=== PATIENT | female | born 1995 | race Two or more races ===

== ENCOUNTER 2024-07-22 00:55 | Emergency (ER) | payer MEDICAID, OTHER ==
[~2024-07-22] VITALS: Ht 154.9 cm; Wt 79.4 kg
[2024-07-22 01:11] VITALS: BP 166/85; PULSE 75; RESP 16; O2SAT 99
[2024-07-22] MEDS ORDERED: BENZOCAINE (DENTAL) 20 % SPRAY 60ML MT ONE (03:15)
[2024-07-22] MEDS ORDERED: ACET500T58 PO (03:16)
[2024-07-22] MEDS ORDERED: AMOX875T4 PO (03:16)
[2024-07-22] MEDS ORDERED: HUR60 MT (03:19)
[2024-07-22] MEDS: cefTRIAXone SOD 1,000 MG VL IM ONE (03:25)
[2024-07-22] MEDS: KETOROLAC TROMETH 60MG/2ML VIAL IM ONE (03:25)
== END 2024-07-22 03:30 | disposition home or self-care (01) ==
LOC: ER 00:55
DX: S02.5XXA Fracture of tooth (traumatic), initial encounter for closed fracture (principal); X58.XXXA Exposure to other specified factors, initial encounter; Y93.89 Activity, other specified; Y92.89 Other specified places as the place of occurrence of the external cause; Y99.8 Other external cause status
CPT/HCPCS: 96372; 99284; J0696; J1885